=== PATIENT | male | born 1965 | race Two or more races ===

== ENCOUNTER → 2021-05-16 | Emergency (ER) | payer OTHER ==
[~2021-05-16] VITALS: Ht 172.7 cm; Wt 72.6 kg
[~2021-05-16] MED LIST: GABA300C PO; LISI20TA30 PO
[2021-05-16 18:17] VITALS: BP 129/93
--- NOTE | 2021-05-16 18:17 | NUR ---
TO ER BED 14, [id number] FROM THE STREETS C/O WEAKNESS, BLURRING OF VISION SINCE YESTERDAY, AAOX3, BREATHING EVEN AND NON LABORED.
== END | disposition home or self-care (01) ==
LOC: ER 18:11
DX: G62.9 Polyneuropathy, unspecified (principal); F17.290 Nicotine dependence, other tobacco product, uncomplicated; Z79.899 Other long term (current) drug therapy